=== PATIENT | male | born 1950 | race Caucasian/White ===

== ENCOUNTER 2017-09-19 04:52 | Inpatient (IN) ==
[2017-09-19] MEDS ORDERED: MORPHINE 2 MG/1 ML SYRINGE IV STA (05:40)
[2017-09-19] MEDS ORDERED: ONDANSETRON 4 MG/2 ML VIAL IV STA (05:40)
[2017-09-19] MEDS ORDERED: ONDANSETRON 4 MG/2 ML VIAL ONE (05:42)
[2017-09-19] MEDS ORDERED: MORPHINE 2 MG/1 ML SYRINGE ONE ×2 (05:43)
[2017-09-19 05:55] LABS: Basophils # 0.1 10*3/uL (0.0-0.2); Basophils % 0.5 % (0.0-0.8); Eosinophils % 0.2 % (0.00-10.9); Hematocrit 39.7 VOL% (42.0-52.0); Hemoglobin 13.8 GM/DL (14.0-18.0); Immature Granulocytes % 0.5 %; Immature Granulocytes Absolute 0.08 #; Lymphocytes # 1.5 10*3/uL (1.4-4.0); Lymphocytes % 10.2 % (21.2-54.2); Mean Corpuscular HGB Conc 34.8 GM/DL (32-36); Mean Corpuscular Hemoglobin 29 PG (27-34); Mean Corpuscular Volume 83.9 FL (87-102); Mean Platelet Volume 11.2 FL (9.6-12.0); Monocytes # 1.4 10*3/uL (0.11-0.8); Monocytes % 9.6 % (1.7-12.7); Neutrophils # 11.7 10*3/uL (1.4-7.4); Platelet Count 291 T/CUMM (130-400); Red Blood Count 4.73 MC/CUMM (3.8-5.5); Red Cell Distribution Width 12.9 % (9.3-17.3); White Blood Count 14.9 T/CUMM (4-12)
[2017-09-19] MEDS ORDERED: ALUM/MAG/SIMETH/LIDO VISC 1:1 30 ML BOTTLE PO ONE (05:57)
[2017-09-19] MEDS ORDERED: ALUM/MAG/SIMETH/LIDO VISC 1:1 30 ML BOTTLE PO STA (05:59)
[2017-09-19 06:24] LABS: Albumin 3.5 G/DL (3.4-5.0); Bilirubin,Total 2.6 MG/DL (0.2-1.0); Potassium 3.9 MMOL/L (3.5-5.1); Total Protein 7.1 G/DL (6.4-8.3)
[2017-09-19 07:24] LABS: Apearance,Urine Slightly Hazy (Clear); Bacteria,Urine Occasional /HPF (Few); Bilirubin,Urine Negative (Negative); Blood, Urine Negative (Negative); Glucose,Urine (UA) Negative (Negative); Hyaline Casts,Urine 1 /LPF (0-3); Ketones,Urine Negative (Negative); Mucus,Urine Occasional /LPF (Occasional); Nitrite,Urine Negative (Negative); Protein,Urine 100 MG/DL; RBC,Urine 3 /HPF (0-4); Squamous Epithelial Cell,Urine Occasional /HPF (0-10); Urine Color Amber (Yellow); Urine Specific Gravity 1.024 (1.001-1.035); WBC,Urine 14 /HPF (0-6)
[2017-09-19] MEDS ORDERED: AMPICILLIN/SULBACTAM 3,000 MG in SODIUM CHLORIDE 0.9% 100 ML IV STA (08:58)
[2017-09-19] MEDS ORDERED: AMPICILLIN/SULBACTAM 3,000 MG VIAL ONE (09:34)
[2017-09-19] MEDS ORDERED: ACETAMINOPHEN 325 MG TABLET PO PRN (10:19)
[2017-09-19] MEDS ORDERED: KETOROLAC 15 MG/1 ML VIAL IV PRN (10:19)
[2017-09-19] MEDS ORDERED: ONDANSETRON 4 MG/2 ML VIAL IV PRN (10:19)
[2017-09-19] MEDS ORDERED: BISACODYL 5 MG TABLET PO PRN (10:19)
[2017-09-19] MEDS: PIPERACILLIN/TAZOBACTAM 3,375 MG in SODIUM CHLORIDE 0.9% 100 ML IV SCH ×2 (15:14→17:56)
[2017-09-19] MEDS: LACTATED RINGERS 1,000 ML IV SCH ×2 (15:14→21:07)
[2017-09-19] MEDS: ATORVASTATIN 20 MG TABLET PO SCH (15:17)
[2017-09-19] MEDS: FLUoxetine 10 MG CAPSULE PO SCH (15:17)
[2017-09-19] MEDS: BISOPROLOL/HCTZ 10-6.25 MG TABLET PO SCH (15:17)
[2017-09-19] MEDS: METOCLOPRAMIDE 5 MG TABLET PO SCH ×3 (15:17→20:18)
[2017-09-19] MEDS ORDERED: INFLUENZA VIRUS VACCINE 0.5 ML SYRINGE IM ONE (15:42)
[2017-09-20] MEDS: HYDROmorphone 2 MG/1 ML VIAL IV PRN ×2 (00:58→05:57)
[2017-09-20] MEDS: PIPERACILLIN/TAZOBACTAM 3,375 MG in SODIUM CHLORIDE 0.9% 100 ML IV SCH ×3 (02:22→20:31)
[2017-09-20] MEDS: LACTATED RINGERS 1,000 ML IV SCH ×3 (04:20→10:30)
[2017-09-20] MEDS ORDERED: BUPIVACAINE 0.25% 50 ML VIAL ONE (06:37)
[2017-09-20 07:07] LABS: Basophils # 0.1 10*3/uL (0.0-0.2); Basophils % 0.4 % (0.0-0.8); Eosinophils % 0.3 % (0.00-10.9); Hematocrit 38.5 VOL% (42.0-52.0); Immature Granulocytes % 0.6 %; Immature Granulocytes Absolute 0.08 #; Lymphocytes # 1.9 10*3/uL (1.4-4.0); Lymphocytes % 14.5 % (21.2-54.2); Mean Corpuscular HGB Conc 33.8 GM/DL (32-36); Mean Corpuscular Hemoglobin 29 PG (27-34); Mean Corpuscular Volume 85.9 FL (87-102); Mean Platelet Volume 11.4 FL (9.6-12.0); Monocytes # 1.3 10*3/uL (0.11-0.8); Monocytes % 9.7 % (1.7-12.7); Neutrophils # 9.8 10*3/uL (1.4-7.4); Neutrophils % 74.5 % (38.7-73.9); Platelet Count 295 T/CUMM (130-400); Red Blood Count 4.48 MC/CUMM (3.8-5.5); Red Cell Distribution Width 13.1 % (9.3-17.3); White Blood Count 13.1 T/CUMM (4-12)
[2017-09-20] MEDS: METOCLOPRAMIDE 5 MG TABLET PO SCH ×4 (07:30→21:46)
[2017-09-20 07:38] LABS: Albumin 3.2 G/DL (3.4-5.0); Bilirubin,Total 1.8 MG/DL (0.2-1.0); Magnesium 2.2 MG/DL (1.8-2.4); Osmolality,Calculated 270.1 MOS/KG (273-304); Potassium 3.8 MMOL/L (3.5-5.1)
[2017-09-20] MEDS ORDERED: PROPOFOL 200 MG/20 ML VIAL IV ONE (09:21)
[2017-09-20] MEDS ORDERED: DESFLURANE 1 UNIT/15 MINUTE INH ONE (09:21)
[2017-09-20] MEDS ORDERED: fentaNYL 100 MCG/2 ML VIAL ONE (09:22)
[2017-09-20] MEDS ORDERED: ACETAMINOPHEN 1,000 MG/100 ML VIAL IV ONE (09:22)
[2017-09-20] MEDS ORDERED: ROCURONIUM 100 MG/10 ML VIAL IV ONE (09:22)
[2017-09-20] MEDS ORDERED: NEOSTIGMINE 10 MG/10 ML VIAL ONE (09:22)
[2017-09-20] MEDS ORDERED: MIDAZOLAM 2 MG/2 ML VIAL ONE (09:22)
[2017-09-20] MEDS ORDERED: GLYCOPYRROLATE 0.4 MG/2 ML VIAL ONE (09:22)
[2017-09-20] MEDS ORDERED: ONDANSETRON 4 MG/2 ML VIAL ONE (09:22)
[2017-09-20] MEDS: PANTOPRAZOLE 40 MG TABLET PO SCH (13:06)
[2017-09-20] MEDS: FLUoxetine 10 MG CAPSULE PO SCH (13:08)
[2017-09-20] MEDS: BISOPROLOL/HCTZ 10-6.25 MG TABLET PO SCH (13:08)
[2017-09-20] MEDS: ATORVASTATIN 20 MG TABLET PO SCH (21:46)
[2017-09-21] MEDS: LACTATED RINGERS 1,000 ML IV SCH ×2 (00:48→07:29)
[2017-09-21] MEDS: ATORVASTATIN 20 MG TABLET PO SCH ×2 (00:49→21:44)
[2017-09-21] MEDS: PIPERACILLIN/TAZOBACTAM 3,375 MG in SODIUM CHLORIDE 0.9% 100 ML IV SCH ×3 (01:58→17:31)
[2017-09-21 06:56] LABS: Basophils % 0.4 % (0.0-0.8); Eosinophils % 0.3 % (0.00-10.9); Hematocrit 35.5 VOL% (42.0-52.0); Hemoglobin 12.2 GM/DL (14.0-18.0); Immature Granulocytes % 0.6 %; Immature Granulocytes Absolute 0.07 #; Lymphocytes # 1.3 10*3/uL (1.4-4.0); Lymphocytes % 11.6 % (21.2-54.2); Mean Corpuscular HGB Conc 34.4 GM/DL (32-36); Mean Corpuscular Hemoglobin 29 PG (27-34); Mean Corpuscular Volume 84.9 FL (87-102); Mean Platelet Volume 11.8 FL (9.6-12.0); Monocytes # 1.3 10*3/uL (0.11-0.8); Monocytes % 11.4 % (1.7-12.7); Neutrophils # 8.5 10*3/uL (1.4-7.4); Neutrophils % 75.7 % (38.7-73.9); Platelet Count 255 T/CUMM (130-400); Red Blood Count 4.18 MC/CUMM (3.8-5.5); Red Cell Distribution Width 13.2 % (9.3-17.3); White Blood Count 11.2 T/CUMM (4-12)
[2017-09-21 07:02] LABS: INR 1.1; PT Patient Result 11.6 SECS
[2017-09-21] MEDS ORDERED: INDOMETHACIN SUPP 50 MG SUPP RECTAL ONE (10:30)
[2017-09-21] MEDS ORDERED: fentaNYL 100 MCG/2 ML VIAL ONE (11:20)
[2017-09-21] MEDS ORDERED: MIDAZOLAM 2 MG/2 ML VIAL ONE (11:21)
[2017-09-21] MEDS ORDERED: ONDANSETRON 4 MG/2 ML VIAL ONE (11:30)
[2017-09-21] MEDS ORDERED: SUCCINYLCHOLINE 200 MG/10 ML VIAL ONE (11:30)
[2017-09-21] MEDS ORDERED: LIDOCAINE 2% 5 ML VIAL ONE (11:30)
[2017-09-21] MEDS ORDERED: PROPOFOL 200 MG/20 ML VIAL IV ONE (11:30)
[2017-09-21] MEDS: METOCLOPRAMIDE 5 MG TABLET PO SCH ×3 (14:26→21:44)
[2017-09-21] MEDS: BISOPROLOL/HCTZ 10-6.25 MG TABLET PO SCH (14:27)
[2017-09-21] MEDS: PANTOPRAZOLE 40 MG TABLET PO SCH (14:27)
[2017-09-21] MEDS: FLUoxetine 10 MG CAPSULE PO SCH (14:27)
[2017-09-22] MEDS: LACTATED RINGERS 1,000 ML IV SCH ×2 (01:34→06:52)
[2017-09-22] MEDS: PIPERACILLIN/TAZOBACTAM 3,375 MG in SODIUM CHLORIDE 0.9% 100 ML IV SCH ×2 (01:56→11:55)
[2017-09-22] MEDS: FLUoxetine 10 MG CAPSULE PO SCH (08:52)
[2017-09-22] MEDS: BISOPROLOL/HCTZ 10-6.25 MG TABLET PO SCH (08:52)
[2017-09-22] MEDS: METOCLOPRAMIDE 5 MG TABLET PO SCH (08:53)
[2017-09-22] MEDS: PANTOPRAZOLE 40 MG TABLET PO SCH (08:53)
[2017-09-22 11:33] VITALS: BP 105/68
== END 2017-09-22 12:45 | disposition home or self-care (01) | DRG 418 ==
LOC: N.ED 04:52 → N.EDINP 10:19 → N.3E 10:35
PROVIDERS: ADMIT Surgery; ATTEND Surgery
PROC: LAPCHOL (2017-09-20 08:01)
PROC: ERCPWSP (ICD-10-PCS; 2017-09-21 10:20)

== ENCOUNTER 2020-07-08 04:32 | Inpatient (IN) ==
[2020-07-08] MEDS ORDERED: HYDROmorphone 2 MG/1 ML VIAL IV STA (05:07)
[2020-07-08] MEDS ORDERED: SODIUM CHLORIDE 0.9% 1,000 ML IV STA ×2 (05:07→06:00)
[2020-07-08] MEDS ORDERED: ONDANSETRON 4 MG/2 ML VIAL IV STA (05:07)
[2020-07-08] MEDS ORDERED: PANTOPRAZOLE 40 MG VIAL IV STA (05:07)
[2020-07-08 05:25] LABS: Basophils # 0.1 10*3/uL (0.0-0.2); Basophils % 0.6 % (0.0-0.8); Hematocrit 53.5 VOL% (42.0-52.0); Immature Granulocytes % 0.6 %; Immature Granulocytes Absolute 0.07 #; Lymphocytes # 2.4 10*3/uL (1.4-4.0); Lymphocytes % 18.9 % (21.2-54.2); Mean Corpuscular HGB Conc 35.5 GM/DL (32-36); Mean Corpuscular Volume 80.1 FL (87-102); Mean Platelet Volume 11.1 FL (9.6-12.0); Monocytes % 13.8 % (1.7-12.7); Neutrophils % 66.1 % (38.7-73.9); Platelet Count 435 T/CUMM (130-400); Red Blood Count 6.68 MC/CUMM (3.8-5.5); Red Cell Distribution Width 15.8 % (9.3-17.3); White Blood Count 12.5 T/CUMM (4-12)
[2020-07-08 05:43] LABS: Alanine Aminotransferase 55 U/L (16-61); Albumin 4.3 G/DL (3.4-5.0); Alkaline Phosphatase 100 U/L (45-117); Amylase 62 U/L (25-115); Aspartate Amino Transferase 39 U/L (0-37); Blood Urea Nitrogen 106 MG/DL (7-18); Calcium 9.5 MG/DL (8.5-10.1); Estimated Glom Filtration Rate 15 ML/MIN; Glucose 222 MG/DL (74-106); Osmolality,Calculated 284.9 MOS/KG (273-304); Total Protein 10.2 G/DL (6.4-8.3)
[2020-07-08 05:54] LABS: Band Neutrophils 17 % (0-10); Lymphocytes 19 % (20-55); Platelet Estimate Normal; Segmented Neutrophils 49 % (50-85); Total Cells Counted 100
[2020-07-08 05:55] LABS: Anisocytosis Slight
[2020-07-08 06:52] LABS: Apearance,Urine Slightly Hazy (Clear); Bilirubin,Urine Negative (Negative); Blood, Urine Negative (Negative); Glucose,Urine (UA) Negative (Negative); Hyaline Casts,Urine 92 /LPF (0-3); Ketones,Urine Negative (Negative); Mucus,Urine Occasional /LPF (Occasional); Nitrite,Urine Negative (Negative); Protein,Urine 30 MG/DL; RBC,Urine 1 /HPF (0-4); Sperm,Urine Occasional /HPF (Negative); Squamous Epithelial Cell,Urine Occasional /HPF (0-10); Urine Color Yellow (Yellow); Urine Specific Gravity 1.019 (1.001-1.035); WBC,Urine 3 /HPF (0-6)
[2020-07-08] MEDS ORDERED: ONDANSETRON 4 MG/2 ML VIAL IV PRN (09:30)
[2020-07-08] MEDS ORDERED: MORPHINE 4 MG/1 ML VIAL IV PRN (09:30)
[2020-07-08] MEDS ORDERED: PROMETHAZINE 25 MG/1 ML VIAL IM PRN (09:30)
[2020-07-08] MEDS ORDERED: ALBUTEROL 2.5 MG/3 ML NEB RESP TX PRN (09:30)
[2020-07-08] MEDS ORDERED: hydrALAZINE 20 MG/1 ML VIAL IV PRN (09:30)
[2020-07-08] MEDS: ENOXAPARIN 30 MG/0.3 ML SYRINGE SUBCUT SCH (10:17)
[2020-07-08] MEDS: SODIUM CHLORIDE 0.9% 1,000 ML IV SCH ×3 (11:02→22:18)
[2020-07-08 11:29] LABS: Uric Acid 14.7 MG/DL (3.5-7.2)
[2020-07-08] MEDS ORDERED: SODIUM CHLORIDE 0.9% 1,000 ML IV ONE (14:04)
[2020-07-09] MEDS: SODIUM CHLORIDE 0.9% 1,000 ML IV SCH ×2 (02:51→06:18)
[2020-07-09 04:38] LABS: Basophils % 0.3 % (0.0-0.8); Hematocrit 42.1 VOL% (42.0-52.0); Hemoglobin 14.6 GM/DL (14.0-18.0); Immature Granulocytes % 0.8 %; Immature Granulocytes Absolute 0.06 #; Lymphocytes # 1.3 10*3/uL (1.4-4.0); Lymphocytes % 16.6 % (21.2-54.2); Mean Corpuscular HGB Conc 34.7 GM/DL (32-36); Mean Corpuscular Volume 82.7 FL (87-102); Mean Platelet Volume 11.4 FL (9.6-12.0); Monocytes % 15.5 % (1.7-12.7); Neutrophils % 66.8 % (38.7-73.9); Platelet Count 298 T/CUMM (130-400); Red Blood Count 5.09 MC/CUMM (3.8-5.5); Red Cell Distribution Width 14.7 % (9.3-17.3); White Blood Count 7.9 T/CUMM (4-12)
[2020-07-09 05:07] LABS: Band Neutrophils 1 % (0-10); Lymphocytes 13 % (20-55); Platelet Estimate Normal; Segmented Neutrophils 72 % (50-85); Total Cells Counted 100
[2020-07-09 05:20] LABS: Bilirubin,Total 1.5 MG/DL (0.2-1.0); Calcium 8.6 MG/DL (8.5-10.1); Osmolality,Calculated 302.8 MOS/KG (273-304); Total Protein 6.9 G/DL (6.4-8.3)
[2020-07-09] MEDS ORDERED: BISOPROLOL/HCTZ 10-6.25 MG TABLET PO SCH (09:00)
[2020-07-09] MEDS: ENOXAPARIN 30 MG/0.3 ML SYRINGE SUBCUT SCH (11:23)
[2020-07-09] MEDS: DEXT 5% NACL 0.9% KCL 40 MEQ 40 MEQ/1,000 ML BAG IV SCH ×2 (11:28→22:00)
[2020-07-10 05:03] LABS: Basophils % 0.3 % (0.0-0.8); Eosinophils % 0.1 % (0.00-10.9); Hematocrit 41.7 VOL% (42.0-52.0); Hemoglobin 13.5 GM/DL (14.0-18.0); Immature Granulocytes % 1.5 %; Immature Granulocytes Absolute 0.11 #; Lymphocytes # 1.3 10*3/uL (1.4-4.0); Lymphocytes % 17.6 % (21.2-54.2); Mean Corpuscular HGB Conc 32.4 GM/DL (32-36); Mean Corpuscular Volume 87.6 FL (87-102); Mean Platelet Volume 11.4 FL (9.6-12.0); Monocytes % 12.4 % (1.7-12.7); Neutrophils % 68.1 % (38.7-73.9); Platelet Count 207 T/CUMM (130-400); Red Blood Count 4.76 MC/CUMM (3.8-5.5); Red Cell Distribution Width 14.7 % (9.3-17.3); White Blood Count 7.3 T/CUMM (4-12)
[2020-07-10 05:31] LABS: Calcium 8.8 MG/DL (8.5-10.1)
[2020-07-10] MEDS: DEXT 5% NACL 0.9% KCL 40 MEQ 40 MEQ/1,000 ML BAG IV SCH ×3 (06:17→19:38)
[2020-07-10] MEDS: ENOXAPARIN 30 MG/0.3 ML SYRINGE SUBCUT SCH (09:35)
[2020-07-10 13:24] LABS: Osmolality, Serum 315 mOsm/kg (275 - 295)
[2020-07-10 13:50] LABS: Osmolality, Urine 458 mOsm/kg (150 - 1150)
[2020-07-11] MEDS: DEXT 5% NACL 0.9% KCL 40 MEQ 40 MEQ/1,000 ML BAG IV SCH (03:22)
[2020-07-11] MEDS: ENOXAPARIN 30 MG/0.3 ML SYRINGE SUBCUT SCH (08:41)
[2020-07-11 11:46] VITALS: BP 117/64
== END 2020-07-11 13:30 | disposition home or self-care (01) | DRG 389 ==
LOC: N.ED 04:32 → N.EDINP 07:28 → N.ICU 10:20 → N.3E 07-10 05:40
PROVIDERS: ADMIT Surgery; ATTEND Surgery

== ENCOUNTER 2020-10-09 20:20 | Inpatient (IN) ==
[2020-10-09] MEDS ORDERED: ONDANSETRON 4 MG/2 ML VIAL IV STA (20:57)
[2020-10-09] MEDS ORDERED: SODIUM CHLORIDE 0.9% 1,000 ML IV STA (20:57)
[2020-10-09 21:19] LABS: Basophils # 0.1 10*3/uL (0.0-0.2); Basophils % 0.5 % (0.0-0.8); Eosinophils # 0.1 10*3/uL (0.0-0.87); Eosinophils % 0.3 % (0.00-10.9); Hematocrit 50.7 VOL% (42.0-52.0); Hemoglobin 17.1 GM/DL (14.0-18.0); Immature Granulocytes % 0.5 %; Immature Granulocytes Absolute 0.11 #; Lymphocytes # 1.2 10*3/uL (1.4-4.0); Lymphocytes % 5.4 % (21.2-54.2); Mean Corpuscular HGB Conc 33.7 GM/DL (32-36); Mean Corpuscular Volume 87.9 FL (87-102); Mean Platelet Volume 10.6 FL (9.6-12.0); Monocytes % 6.4 % (1.7-12.7); Neutrophils % 86.9 % (38.7-73.9); Platelet Count 397 T/CUMM (130-400); Red Blood Count 5.77 MC/CUMM (3.8-5.5); Red Cell Distribution Width 13.2 % (9.3-17.3); White Blood Count 21.6 T/CUMM (4-12)
[2020-10-09 21:41] LABS: Bilirubin,Urine Negative (Negative); Blood, Urine Negative (Negative); Glucose,Urine (UA) Negative (Negative); Hyaline Casts,Urine 45 /LPF (0-3); Ketones,Urine Negative (Negative); Mucus,Urine Few /LPF (Occasional); Nitrite,Urine Negative (Negative); Protein,Urine 100 MG/DL; RBC,Urine 8 /HPF (0-4); Squamous Epithelial Cell,Urine Occasional /HPF (0-10); Urine Appearance CLOUDY (Clear); Urine Color Amber (Yellow); Urine Specific Gravity 1.024 (1.001-1.035); WBC,Urine 51 /HPF (0-6)
[2020-10-09 21:46] LABS: Eosinophils 1 % (0-10); Lymphocytes 4 % (20-55); Segmented Neutrophils 87 % (50-85); Total Cells Counted 100
[2020-10-09 22:00] LABS: Albumin 4.5 G/DL (3.4-5.0); Bilirubin,Total 0.7 MG/DL (0.2-1.0); Calcium 10.2 MG/DL (8.5-10.1); Osmolality,Calculated 281.7 MOS/KG (273-304); Total Protein 9.6 G/DL (6.4-8.3)
[2020-10-09] MEDS ORDERED: PIPERACILLIN/TAZOBACTAM 3,375 MG in SODIUM CHLORIDE 0.9% 100 ML IV STA (22:26)
[2020-10-09] MEDS ORDERED: MORPHINE 4 MG/1 ML VIAL IV PRN (23:23)
[2020-10-09] MEDS ORDERED: ONDANSETRON 4 MG/2 ML VIAL IV PRN (23:23)
[2020-10-10] MEDS: PIPERACILLIN/TAZOBACTAM 3,375 MG in SODIUM CHLORIDE 0.9% 100 ML IV SCH ×3 (03:39→15:05)
[2020-10-10 05:59] LABS: Basophils % 0.2 % (0.0-0.8); Hematocrit 41.7 VOL% (42.0-52.0); Immature Granulocytes % 0.4 %; Immature Granulocytes Absolute 0.05 #; Lymphocytes # 1.2 10*3/uL (1.4-4.0); Lymphocytes % 8.9 % (21.2-54.2); Mean Corpuscular HGB Conc 33.6 GM/DL (32-36); Mean Corpuscular Volume 88.2 FL (87-102); Mean Platelet Volume 11.1 FL (9.6-12.0); Monocytes % 6.7 % (1.7-12.7); Neutrophils % 83.8 % (38.7-73.9); Platelet Count 275 T/CUMM (130-400); Red Blood Count 4.73 MC/CUMM (3.8-5.5); Red Cell Distribution Width 13.2 % (9.3-17.3); White Blood Count 13.6 T/CUMM (4-12)
[2020-10-10] MEDS: DEXTROSE 5% 1,000 ML IV SCH ×2 (06:31→15:05)
[2020-10-10 06:40] LABS: Band Neutrophils 1 % (0-10); Lymphocytes 12 % (20-55); Segmented Neutrophils 82 % (50-85); Total Cells Counted 100
[2020-10-10 06:42] LABS: Albumin 3.4 G/DL (3.4-5.0); Bilirubin,Total 1.1 MG/DL (0.2-1.0); Calcium 8.6 MG/DL (8.5-10.1); Osmolality,Calculated 286.5 MOS/KG (273-304); Total Protein 7.4 G/DL (6.4-8.3)
[2020-10-10 06:43] LABS: Ovalocytes Slight; Platelet Estimate Normal
[2020-10-10 06:45] LABS: Microcytosis 1+
[2020-10-10] MEDS: PANTOPRAZOLE 40 MG VIAL IV SCH (09:42)
[2020-10-10] MEDS: DOCUSATE SODIUM 100 MG CAPSULE PO SCH ×2 (09:42→21:29)
[2020-10-10] MEDS: CIPROFLOXACIN 500 MG TABLET PO SCH (21:29)
[2020-10-11] MEDS: DOCUSATE SODIUM 100 MG CAPSULE PO SCH (08:59)
[2020-10-11] MEDS: CIPROFLOXACIN 500 MG TABLET PO SCH (09:01)
[2020-10-11] MEDS: PANTOPRAZOLE 40 MG VIAL IV SCH (09:02)
[2020-10-11 12:58] VITALS: BP 133/68
== END 2020-10-11 14:01 | disposition home or self-care (01) | DRG 690 ==
LOC: EDUNIT# → N.ED 20:20 → N.EDINP 23:41 → N.5E 10-10 00:40
PROVIDERS: ADMIT Family Medicine; ATTEND Family Medicine

== ENCOUNTER 2021-02-16 06:02 | Inpatient (IN) ==
[2021-02-12 11:22] LABS: Basophils % 0.6 % (0.0-0.8); Eosinophils # 0.1 10*3/uL (0.0-0.87); Eosinophils % 2.3 % (0.00-10.9); Hematocrit 39.5 VOL% (42.0-52.0); Hemoglobin 12.8 GM/DL (14.0-18.0); Immature Granulocytes % 0.5 %; Immature Granulocytes Absolute 0.03 #; Lymphocytes # 2.1 10*3/uL (1.4-4.0); Lymphocytes % 33.4 % (21.2-54.2); Mean Corpuscular HGB Conc 32.4 GM/DL (32-36); Mean Corpuscular Volume 90.4 FL (87-102); Mean Platelet Volume 11.5 FL (9.6-12.0); Monocytes % 7.1 % (1.7-12.7); Neutrophils % 56.1 % (38.7-73.9); Platelet Count 219 T/CUMM (130-400); Red Blood Count 4.37 MC/CUMM (3.8-5.5); Red Cell Distribution Width 13.8 % (9.3-17.3); White Blood Count 6.2 T/CUMM (4-12)
[2021-02-12 11:35] LABS: Calcium 8.7 MG/DL (8.5-10.1); Osmolality,Calculated 279.4 MOS/KG (273-304); Potassium 4.2 MMOL/L (3.5-5.1)
[~2021-02-16 06:02] MED LIST: ceFAZolin 2,000 MG/50 ML DUPLEX IV ONE
[2021-02-16] MEDS ORDERED: MIDAZOLAM 2 MG/2 ML VIAL ONE (06:40)
[2021-02-16] MEDS ORDERED: ROCURONIUM 50 MG/5 ML VIAL IV ONE ×3 (06:40→10:30)
[2021-02-16] MEDS ORDERED: propofoL 200 MG/20 ML VIAL IV ONE (06:40)
[2021-02-16] MEDS ORDERED: fentaNYL 250 MCG/5 ML VIAL ONE (06:40)
[2021-02-16] MEDS ORDERED: LIDOCAINE 2% 5 ML VIAL ONE (06:40)
[2021-02-16] MEDS ORDERED: LIDOCAINE 1%/EPI INJ 20 ML VIAL ONE (06:42)
[2021-02-16] MEDS ORDERED: BUPIVACAINE MPF 0.25% 30 ML VIAL ONE ×2 (06:42→11:28)
[2021-02-16] MEDS ORDERED: ePHEDrine 50 MG/ML VIAL ONE (07:19)
[2021-02-16] MEDS: LACTATED RINGERS 1,000 ML IV SCH ×3 (07:40→18:07)
[2021-02-16] MEDS ORDERED: PHENYLEPHRINE 1 MG/10 ML SYRINGE IV ONE ×3 (07:52→10:45)
[2021-02-16] MEDS ORDERED: SEVOFLURANE 1 UNIT/15 MINUTE INH ONE ×17 (07:55→10:46)
[2021-02-16] MEDS ORDERED: ONDANSETRON 4 MG/2 ML VIAL ONE ×2 (07:55→12:55)
[2021-02-16] MEDS ORDERED: LACTATED RINGERS 1,000 ML IV ONE ×2 (07:55→10:45)
[2021-02-16] MEDS ORDERED: ACETAMINOPHEN INJ 1,000 MG/100 ML VIAL IV ONE (07:55)
[2021-02-16] MEDS ORDERED: NEOSTIGMINE 10 MG/10 ML VIAL ONE (10:49)
[2021-02-16] MEDS ORDERED: GLYCOPYRROLATE 0.4 MG/2 ML VIAL ONE (10:49)
[2021-02-16] MEDS ORDERED: DEXAMETHASONE 4 MG/1 ML VIAL ONE (11:28)
[2021-02-16] MEDS ORDERED: ONDANSETRON 4 MG/2 ML VIAL IV PRN (12:52)
[2021-02-16] MEDS ORDERED: HYDROmorphone 2 MG/1 ML VIAL ONE (12:54)
[2021-02-16] MEDS: HYDROmorphone 2 MG/1 ML VIAL IV PRN ×4 (12:55→15:30)
[2021-02-16] MEDS ORDERED: PROMETHAZINE 25 MG/1 ML VIAL IM PRN (16:17)
[2021-02-16] MEDS ORDERED: POLYETHYLENE GLYCOL POWDER 17 GM PACK PO PRN (16:17)
[2021-02-16 17:01] LABS: Basophils % 0.1 % (0.0-0.8); Eosinophils % 0.1 % (0.00-10.9); Immature Granulocytes % 0.3 %; Immature Granulocytes Absolute 0.02 #; Lymphocytes # 0.6 10*3/uL (1.4-4.0); Lymphocytes % 7.1 % (21.2-54.2); Mean Corpuscular HGB Conc 32.5 GM/DL (32-36); Mean Corpuscular Volume 90.5 FL (87-102); Mean Platelet Volume 10.9 FL (9.6-12.0); Monocytes % 7.2 % (1.7-12.7); Neutrophils % 85.2 % (38.7-73.9); Platelet Count 201 T/CUMM (130-400); Red Blood Count 4.42 MC/CUMM (3.8-5.5); Red Cell Distribution Width 14.2 % (9.3-17.3); White Blood Count 7.9 T/CUMM (4-12)
[2021-02-16 17:19] LABS: Calcium 8.3 MG/DL (8.5-10.1); Osmolality,Calculated 285.3 MOS/KG (273-304)
[2021-02-16 17:37] LABS: Atypical Lymphocytes Few; Band Neutrophils 11 % (0-10); Hypochromasia Slight; Lymphocytes 8 % (20-55); Platelet Estimate Adequate; Segmented Neutrophils 79 % (50-85); Total Cells Counted 100
[2021-02-16] MEDS: KETOROLAC 15 MG/1 ML VIAL IV SCH ×3 (18:07→22:42)
[2021-02-16] MEDS: PANTOPRAZOLE 40 MG VIAL IV SCH (18:07)
[2021-02-16] MEDS ORDERED: OMEPRAZOLE 20 MG PO SCH (21:00)
[2021-02-16] MEDS: SELENIUM 200 MCG TABLET PO SCH (21:16)
[2021-02-17] MEDS: LACTATED RINGERS 1,000 ML IV SCH (01:55)
[2021-02-17] MEDS: KETOROLAC 15 MG/1 ML VIAL IV SCH ×5 (03:24→21:31)
[2021-02-17 06:54] LABS: Basophils % 0.1 % (0.0-0.8); Hematocrit 34.6 VOL% (42.0-52.0); Hemoglobin 11.3 GM/DL (14.0-18.0); Immature Granulocytes % 0.2 %; Immature Granulocytes Absolute 0.02 #; Lymphocytes # 1.3 10*3/uL (1.4-4.0); Lymphocytes % 15.9 % (21.2-54.2); Mean Corpuscular HGB Conc 32.7 GM/DL (32-36); Mean Corpuscular Volume 91.1 FL (87-102); Mean Platelet Volume 11.6 FL (9.6-12.0); Monocytes % 9.9 % (1.7-12.7); Neutrophils % 73.9 % (38.7-73.9); Platelet Count 203 T/CUMM (130-400); Red Cell Distribution Width 14.3 % (9.3-17.3); White Blood Count 8.3 T/CUMM (4-12)
[2021-02-17 07:13] LABS: Calcium 8.4 MG/DL (8.5-10.1); Osmolality,Calculated 275.8 MOS/KG (273-304); Potassium 3.7 MMOL/L (3.5-5.1)
[2021-02-17 07:29] LABS: Lymphocytes 10 % (20-55); Platelet Estimate Adequate; Segmented Neutrophils 82 % (50-85); Total Cells Counted 100
[2021-02-17 07:30] LABS: Hypochromasia 1+; Microcytosis 1+
[2021-02-17] MEDS: ENOXAPARIN 40 MG/0.4 ML SYRINGE SUBCUT SCH (09:31)
[2021-02-17] MEDS: ASPIRIN EC 81 MG TABLET PO SCH (09:31)
[2021-02-17] MEDS: PANTOPRAZOLE 40 MG VIAL IV SCH (09:31)
[2021-02-17] MEDS: FERROUS SULFATE 325 MG TABLET PO SCH (09:31)
[2021-02-17] MEDS: ATORVASTATIN 20 MG TABLET PO SCH (09:31)
[2021-02-17] MEDS: BISOPROLOL/HCTZ 10-6.25 MG TABLET PO SCH (09:45)
[2021-02-17] MEDS: FLUoxetine 10 MG CAPSULE PO SCH (10:23)
[2021-02-17] MEDS: ONDANSETRON 4 MG/2 ML VIAL IV PRN (21:30)
[2021-02-17] MEDS: SELENIUM 200 MCG TABLET PO SCH (21:34)
[2021-02-18] MEDS: KETOROLAC 15 MG/1 ML VIAL IV SCH ×4 (05:15→22:23)
[2021-02-18 07:11] LABS: Basophils % 0.3 % (0.0-0.8); Eosinophils % 0.3 % (0.00-10.9); Hemoglobin 12.2 GM/DL (14.0-18.0); Immature Granulocytes % 0.3 %; Immature Granulocytes Absolute 0.02 #; Lymphocytes # 0.7 10*3/uL (1.4-4.0); Lymphocytes % 10.7 % (21.2-54.2); Mean Corpuscular HGB Conc 33.9 GM/DL (32-36); Mean Corpuscular Volume 88.5 FL (87-102); Monocytes % 9.8 % (1.7-12.7); Neutrophils % 78.6 % (38.7-73.9); Platelet Count 249 T/CUMM (130-400); Red Blood Count 4.07 MC/CUMM (3.8-5.5); Red Cell Distribution Width 14.5 % (9.3-17.3); White Blood Count 6.6 T/CUMM (4-12)
[2021-02-18 07:31] LABS: Albumin 2.8 G/DL (3.4-5.0); Bilirubin,Total 1.4 MG/DL (0.2-1.0); Calcium 9.1 MG/DL (8.5-10.1); Osmolality,Calculated 277.8 MOS/KG (273-304); Potassium 3.8 MMOL/L (3.5-5.1); Total Protein 6.9 G/DL (6.4-8.2)
[2021-02-18 07:34] LABS: Band Neutrophils 6 % (0-10); Eosinophils 1 % (0-10); Lymphocytes 9 % (20-55); Platelet Estimate Adequate; Segmented Neutrophils 75 % (50-85); Total Cells Counted 100
[2021-02-18 07:35] LABS: Hypochromasia 1+; Microcytosis 1+
[2021-02-18] MEDS ORDERED: LACTATED RINGERS 1,000 ML IV SCH (08:00)
[2021-02-18] MEDS: PANTOPRAZOLE 40 MG VIAL IV SCH (08:57)
[2021-02-18] MEDS: ASPIRIN EC 81 MG TABLET PO SCH (08:58)
[2021-02-18] MEDS: FERROUS SULFATE 325 MG TABLET PO SCH (08:58)
[2021-02-18] MEDS: ONDANSETRON 4 MG/2 ML VIAL IV PRN (08:58)
[2021-02-18] MEDS: BISOPROLOL/HCTZ 10-6.25 MG TABLET PO SCH (08:58)
[2021-02-18] MEDS: ATORVASTATIN 20 MG TABLET PO SCH (08:58)
[2021-02-18] MEDS: ENOXAPARIN 40 MG/0.4 ML SYRINGE SUBCUT SCH (08:58)
[2021-02-18] MEDS: FLUoxetine 10 MG CAPSULE PO SCH (08:58)
[2021-02-18] MEDS: POTASSIUM CHLORIDE INJ 20 MEQ in LACTATED RINGERS 1,000 ML IV SCH ×2 (09:37→16:48)
[2021-02-18] MEDS ORDERED: LACTATED RINGERS 1,000 ML IV ONE (18:03)
[2021-02-18 19:15] LABS: Calcium 9.1 MG/DL (8.5-10.1); Osmolality,Calculated 282.7 MOS/KG (273-304); Potassium 3.4 MMOL/L (3.5-5.1)
[2021-02-18] MEDS: SELENIUM 200 MCG TABLET PO SCH (22:24)
[2021-02-19] MEDS: POTASSIUM CHLORIDE INJ 20 MEQ in LACTATED RINGERS 1,000 ML IV SCH (03:29)
[2021-02-19] MEDS: KETOROLAC 15 MG/1 ML VIAL IV SCH (05:58)
[2021-02-19 06:05] LABS: Basophils % 0.7 % (0.0-0.8); Eosinophils # 0.3 10*3/uL (0.0-0.87); Eosinophils % 5.2 % (0.00-10.9); Hemoglobin 11.4 GM/DL (14.0-18.0); Immature Granulocytes % 0.4 %; Immature Granulocytes Absolute 0.02 #; Lymphocytes # 1.4 10*3/uL (1.4-4.0); Lymphocytes % 26.3 % (21.2-54.2); Mean Corpuscular HGB Conc 33.5 GM/DL (32-36); Mean Platelet Volume 11.3 FL (9.6-12.0); Monocytes % 15.6 % (1.7-12.7); Neutrophils % 51.8 % (38.7-73.9); Platelet Count 229 T/CUMM (130-400); Red Blood Count 3.82 MC/CUMM (3.8-5.5); Red Cell Distribution Width 14.2 % (9.3-17.3); White Blood Count 5.4 T/CUMM (4-12)
[2021-02-19 06:40] LABS: Band Neutrophils 15 % (0-10); Eosinophils 3 % (0-10); Lymphocytes 25 % (20-55); Segmented Neutrophils 46 % (50-85); Total Cells Counted 100
[2021-02-19 06:41] LABS: Hypochromasia 1+; Microcytosis 1+
[2021-02-19 06:42] LABS: Platelet Estimate Normal
[2021-02-19 06:48] LABS: Albumin 2.6 G/DL (3.4-5.0); Bilirubin,Total 1.5 MG/DL (0.2-1.0); Calcium 8.8 MG/DL (8.5-10.1); Osmolality,Calculated 286.4 MOS/KG (273-304); Potassium 3.9 MMOL/L (3.5-5.1); Total Protein 6.6 G/DL (6.4-8.2)
[2021-02-19] MEDS: PANTOPRAZOLE 40 MG VIAL IV SCH (09:29)
[2021-02-19] MEDS: ENOXAPARIN 40 MG/0.4 ML SYRINGE SUBCUT SCH (09:31)
[2021-02-19] MEDS: DEXT 5% NACL 0.45% KCL 40 MEQ 40 MEQ/1,000 ML BAG IV SCH ×2 (09:33→17:44)
[2021-02-19] MEDS: ATORVASTATIN 20 MG TABLET PO SCH (09:35)
[2021-02-19] MEDS: ASPIRIN EC 81 MG TABLET PO SCH (09:35)
[2021-02-19] MEDS: FERROUS SULFATE 325 MG TABLET PO SCH (09:35)
[2021-02-19] MEDS: BISOPROLOL/HCTZ 10-6.25 MG TABLET PO SCH (09:35)
[2021-02-19] MEDS: FLUoxetine 10 MG CAPSULE PO SCH (09:35)
[2021-02-19] MEDS: HYDROmorphone 2 MG/1 ML VIAL IV PRN (16:25)
[2021-02-20] MEDS: SELENIUM 200 MCG TABLET PO SCH ×2 (00:11→20:35)
[2021-02-20] MEDS: DEXT 5% NACL 0.45% KCL 40 MEQ 40 MEQ/1,000 ML BAG IV SCH ×3 (01:45→20:36)
[2021-02-20 05:27] LABS: Basophils % 0.5 % (0.0-0.8); Eosinophils # 0.3 10*3/uL (0.0-0.87); Hematocrit 32.6 VOL% (42.0-52.0); Hemoglobin 10.9 GM/DL (14.0-18.0); Immature Granulocytes % 0.9 %; Immature Granulocytes Absolute 0.06 #; Lymphocytes # 1.6 10*3/uL (1.4-4.0); Lymphocytes % 23.6 % (21.2-54.2); Mean Corpuscular HGB Conc 33.4 GM/DL (32-36); Mean Corpuscular Volume 89.6 FL (87-102); Mean Platelet Volume 11.7 FL (9.6-12.0); Monocytes % 10.5 % (1.7-12.7); Neutrophils % 59.5 % (38.7-73.9); Platelet Count 214 T/CUMM (130-400); Red Blood Count 3.64 MC/CUMM (3.8-5.5); Red Cell Distribution Width 13.8 % (9.3-17.3); White Blood Count 6.6 T/CUMM (4-12)
[2021-02-20 05:51] LABS: Calcium 8.7 MG/DL (8.5-10.1); Osmolality,Calculated 283.3 MOS/KG (273-304); Potassium 4.1 MMOL/L (3.5-5.1)
[2021-02-20 06:57] LABS: Anisocytosis Slight; Band Neutrophils 24 % (0-10); Eosinophils 9 % (0-10); Lymphocytes 24 % (20-55); Nucleated Red Blood Cells 1 (0-5); Platelet Estimate Normal; Segmented Neutrophils 36 % (50-85); Total Cells Counted 100
[2021-02-20 06:58] LABS: Poikilocytosis Slight
[2021-02-20] MEDS: ENOXAPARIN 40 MG/0.4 ML SYRINGE SUBCUT SCH (09:09)
[2021-02-20] MEDS: PANTOPRAZOLE 40 MG VIAL IV SCH (09:10)
[2021-02-20] MEDS: HYDROmorphone 2 MG/1 ML VIAL IV PRN (09:21)
[2021-02-20] MEDS: ATORVASTATIN 20 MG TABLET PO SCH (10:12)
[2021-02-20] MEDS: ASPIRIN EC 81 MG TABLET PO SCH (10:12)
[2021-02-20] MEDS: FERROUS SULFATE 325 MG TABLET PO SCH (10:12)
[2021-02-20] MEDS: FLUoxetine 10 MG CAPSULE PO SCH (10:13)
[2021-02-20] MEDS: BISOPROLOL/HCTZ 10-6.25 MG TABLET PO SCH (10:13)
[2021-02-21] MEDS: DEXT 5% NACL 0.45% KCL 40 MEQ 40 MEQ/1,000 ML BAG IV SCH ×2 (04:19→16:03)
[2021-02-21 06:50] LABS: Basophils % 0.5 % (0.0-0.8); Eosinophils # 0.4 10*3/uL (0.0-0.87); Hematocrit 32.8 VOL% (42.0-52.0); Hemoglobin 10.5 GM/DL (14.0-18.0); Immature Granulocytes % 1.6 %; Immature Granulocytes Absolute 0.14 #; Lymphocytes # 1.8 10*3/uL (1.4-4.0); Lymphocytes % 20.4 % (21.2-54.2); Mean Corpuscular Volume 91.9 FL (87-102); Mean Platelet Volume 11.5 FL (9.6-12.0); Monocytes % 8.9 % (1.7-12.7); Neutrophils % 64.6 % (38.7-73.9); Platelet Count 231 T/CUMM (130-400); Red Blood Count 3.57 MC/CUMM (3.8-5.5); Red Cell Distribution Width 13.5 % (9.3-17.3); White Blood Count 8.7 T/CUMM (4-12)
[2021-02-21 06:55] LABS: Calcium 8.5 MG/DL (8.5-10.1); Osmolality,Calculated 279.4 MOS/KG (273-304)
[2021-02-21 07:47] LABS: Anisocytosis Slight; Atypical Lymphocytes Few; Band Neutrophils 19 % (0-10); Burr Cells Few; Eosinophils 4 % (0-10); Lymphocytes 23 % (20-55); Platelet Estimate Normal; Segmented Neutrophils 47 % (50-85); Total Cells Counted 100
[2021-02-21] MEDS: ASPIRIN EC 81 MG TABLET PO SCH (09:32)
[2021-02-21] MEDS: FLUoxetine 10 MG CAPSULE PO SCH (09:32)
[2021-02-21] MEDS: ATORVASTATIN 20 MG TABLET PO SCH (09:32)
[2021-02-21] MEDS: BISOPROLOL/HCTZ 10-6.25 MG TABLET PO SCH (09:32)
[2021-02-21] MEDS: FERROUS SULFATE 325 MG TABLET PO SCH (09:32)
[2021-02-21] MEDS: PANTOPRAZOLE 40 MG VIAL IV SCH (09:33)
[2021-02-21] MEDS: ENOXAPARIN 40 MG/0.4 ML SYRINGE SUBCUT SCH (09:36)
[2021-02-21] MEDS: PIPERACILLIN/TAZOBACTAM 3,375 MG in SODIUM CHLORIDE 0.9% 100 ML IV SCH ×2 (11:31→17:50)
[2021-02-21] MEDS: ONDANSETRON 4 MG/2 ML VIAL IV PRN (17:53)
[2021-02-21] MEDS: SELENIUM 200 MCG TABLET PO SCH (21:11)
[2021-02-22] MEDS: PIPERACILLIN/TAZOBACTAM 3,375 MG in SODIUM CHLORIDE 0.9% 100 ML IV SCH (01:44)
[2021-02-22 05:02] LABS: Basophils # 0.1 10*3/uL (0.0-0.2); Basophils % 0.8 % (0.0-0.8); Eosinophils # 0.3 10*3/uL (0.0-0.87); Eosinophils % 3.2 % (0.00-10.9); Hemoglobin 10.9 GM/DL (14.0-18.0); Immature Granulocytes % 1.8 %; Immature Granulocytes Absolute 0.17 #; Lymphocytes # 1.7 10*3/uL (1.4-4.0); Lymphocytes % 17.7 % (21.2-54.2); Mean Corpuscular Volume 89.7 FL (87-102); Mean Platelet Volume 11.3 FL (9.6-12.0); Monocytes % 9.4 % (1.7-12.7); Neutrophils % 67.1 % (38.7-73.9); Platelet Count 255 T/CUMM (130-400); Red Blood Count 3.68 MC/CUMM (3.8-5.5); Red Cell Distribution Width 13.6 % (9.3-17.3); White Blood Count 9.5 T/CUMM (4-12)
[2021-02-22 05:21] LABS: Calcium 8.5 MG/DL (8.5-10.1); Osmolality,Calculated 278.4 MOS/KG (273-304); Potassium 3.9 MMOL/L (3.5-5.1)
[2021-02-22 07:52] VITALS: BP 121/72
[2021-02-22] MEDS ORDERED: MAGNESIUM SULF RIDER 2 GM/50 ML PREMIX IV ONE (08:04)
[2021-02-22] MEDS ORDERED: SULFAMETHOX/TRIMETHOPRIM 800-160 MG TABLET PO SCH (09:00)
[2021-02-22] MEDS ORDERED: CEFUROXIME 500 MG TABLET PO SCH (09:00)
[2021-02-22] MEDS ORDERED: MAGNESIUM CHLORIDE 64 MG TABLET PO SCH (09:00)
[2021-02-22] MEDS: ENOXAPARIN 40 MG/0.4 ML SYRINGE SUBCUT SCH (09:09)
[2021-02-22] MEDS: PANTOPRAZOLE 40 MG VIAL IV SCH (09:09)
[2021-02-22] MEDS: FLUoxetine 10 MG CAPSULE PO SCH (09:10)
[2021-02-22] MEDS: ASPIRIN EC 81 MG TABLET PO SCH (09:10)
[2021-02-22] MEDS: FERROUS SULFATE 325 MG TABLET PO SCH (09:10)
[2021-02-22] MEDS: BISOPROLOL/HCTZ 10-6.25 MG TABLET PO SCH (09:10)
[2021-02-22] MEDS: ATORVASTATIN 20 MG TABLET PO SCH (09:10)
== END 2021-02-22 11:00 | disposition home or self-care (01) | DRG 330 ==
LOC: N.OR 06:02 → N.SDSINP 06:04 → N.4E 16:01
PROVIDERS: ADMIT Surgery; ATTEND Surgery